=== PATIENT | male | born 1960 | race Caucasian/White ===

== ENCOUNTER 2022-02-25 23:04 | Emergency (ER) | payer MEDICAID, SELFPAY ==
--- NOTE | ~2022-02-25 | FL_ITS ---
EXAMINATION: XR FLUOROSCOPY WITH IMAGES CLINICAL INFORMATION: Stent. COMPARISON: None. TECHNIQUE: Fluoroscopy performed by Dr. Edd Slater. FLUOROSCOPY TIME: 42.2 seconds. DAP: 12.26 mGy-cm FLUOROSCOPY IMAGES: 1 FINDINGS: Single intraoperative view demonstrates proximal left ureteral stent with mild hydronephrosis. FL/FL guidance in OR IMPRESSION: Intraoperative fluoroscopy provided for urological procedure.
--- NOTE | ~2022-02-25 | CT_ITS ---
EXAMINATION: CT ABDOMEN AND PELVIS WITHOUT CONTRAST CLINICAL INFORMATION: Left lower quadrant pain COMPARISON: None TECHNIQUE: Multidetector volumetric imaging was performed from the superior aspect of the liver through the pubic symphysis. Sagittal and coronal reformatted images were obtained on the technologist's workstation. This CT examination was performed using dose optimization techniques as appropriate, variously including the following: *Automated exposure control *Adjustment of mA and/or kV according to patient size (this includes techniques or standardized protocols for targeted exams where dose is matched to indication/reason for exam; i.e. extremities or head) *Use of iterative reconstruction technique DLP: 521 mGy-cm FINDINGS: LUNG BASES: The visualized lung bases are unremarkable. LIVER, GALLBLADDER, AND BILIARY TREE: The liver is normal in size, shape, and attenuation. No focal hepatic lesion or biliary ductal dilatation is present. The gallbladder is unremarkable with no evidence of radiopaque gallstones, gallbladder wall thickening, or obvious pericholecystic inflammatory changes. PANCREAS: Unremarkable. A few scattered tiny punctate calcifications are seen. SPLEEN: Unremarkable. ADRENAL GLANDS: Unremarkable. KIDNEYS AND URETERS: On the left, there is an obstructing proximal ureteral calculus measuring 4 x 10 mm in size with moderate left-sided hydronephrosis and perinephric stranding. The stone measures 960 Hounsfield units and is 11.7 cm from the posterior axillary line. No intrarenal stones are seen. A 2.2 cm simple left renal cyst is present. This needs no further imaging or follow-up. No solid renal masses are seen. On the right, multiple nonobstructing calculi are present at the lower pole the largest measuring 7 mm in size. No hydronephrosis or solid renal masses are seen. There is a 1 cm benign Bosniak class I renal cyst present in the mid kidney. This needs no further imaging or follow-up. BLADDER: Unremarkable. GASTROINTESTINAL TRACT: The small and large bowel are unremarkable. The appendix is unremarkable. ABDOMINAL WALL: No significant hernia is appreciated. Mild diastases of the rectus muscles LYMPH NODES: No retroperitoneal lymphadenopathy. 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 PELVIC VISCERA: Prostate and seminal vesicles appear unremarkable. OSSEOUS STRUCTURES: Mild degenerative changes in the spine most marked at L5-S1. CT/CT abdomen pelvis wo con IMPRESSION: 1. 4 x 10 mm obstructing left proximal ureteral calculus with associated hydronephrosis and perirenal stranding indicative of forniceal rupture. 2. Nonobstructing right renal calculi. 3. Other incidental findings as described above. Fleischner guidelines were followed.
[2022-02-25 23:46] VITALS: BP 159/75; PULSE 77; RESP 18; TEMP 37.2; O2SAT 98; BMI 26.6
[2022-02-25 23:56] LABS: Hematocrit 47.1 % (42.0-52.0); Hemoglobin 16.1 g/dl (14.0-18.0); Mean Corpuscular HGB Conc 34.2 g/dl (31.0-36.0); Mean Corpuscular Hemoglobin 28.6 pg (27.0-33.0); Mean Corpuscular Volume 83.8 fL (80.0-98.0); Platelet Count 187 X10*3/uL (160-400); Red Blood Count 5.62 X10*6/uL (4.60-5.80); Red Cell Distribution Width 13.4 % (11.0-16.0); White Blood Count 14.6 X10*3/uL (4.8-10.8)
[2022-02-26] VITALS (11 sets, daily range): BP systolic 116–182; BP diastolic 58–87; PULSE 65–98; RESP 14–18; TEMP 36.6–37.2; O2SAT 95–98
--- NOTE | 2022-02-26 00:17 | ED_ITS ---
HPI - Abdominal Pain General Chief Complaint: Abdominal Pain Stated Complaint: lower abd pain Time Seen by Provider: 02/26/22 00:15 History of Present Illness HPI narrative: Patient is a 61-year-old male presents today with having abdominal pain been ongoing for last 2 days worse in the left flank area radiating to the left abdomen. Positive nausea no vomiting. No fever no chills. No cough no congestion of her symptoms. No history kidney stone no history of diverticulitis patient is from home. No travel history no change in bowel movement. No history of abdominal surgery in the Related Data Allergies Allergy/AdvReac Type Severity Reaction Status Date / Time No Known Allergies Allergy Verified 02/25/22 23:49 Review of Systems Review of Systems No fever no chills positive abdominal pain Yes all other systems are reviewed and are negative [facility] Past Medical History Attestation statement: The following information was validated with the patient. Social History Social History Advance Directives: No Advance Directives Information Provided: Yes Physical Exam ED Vital Signs: Vital Signs - 24 hr 02/25/22 23:46 02/26/22 01:04 02/26/22 04:34 Temperature 99.0 F 98.9 F Pulse Rate 77 73 75 Respiratory Rate 18 16 14 Blood Pressure 159/75 H 145/77 H 153/77 H Pulse Oximetry 98 97 95 02/26/22 06:08 Temperature Pulse Rate 72 Respiratory Rate 14 Blood Pressure 149/82 H Pulse Oximetry 98 BMI result Body Mass Index 26.6 Appearance: Alert. Oriented X3. No acute distress. Eyes: Pupils equal, round and reactive to light. ENT: Pharynx normal. Neck: Normal inspection. Neck supple. No lymph nodes noted. No crepitus CVS: Normal heart rate and rhythm. Pulses normal. Normal S1 and S2 Respiratory: No respiratory distress. Breath sounds normal. No Wheezing. No rales Abdomen: Soft and nontender. No rigidity. No distention. good BS x4 Skin: Skin warm and dry. Normal skin color. Normal skin turgor. Extremities: No lower extremity edema. Neurovascular intact to all extremities. No Lacerations. No Rash Neuro: Oriented X 3. No motor deficit. No sensory deficit. Moving all extermities. No slurred speech MDM - Abdominal Pain MDM Narrative Medical decision making narrative: ?Positive left-sided abdominal pain. On and off. Motrin seems to make the pain a little better. A CT scan of the abdomen was done. It show a 4 x 10 stone with forniceal rupture. Urine showed no leukocyte esterase. Small amount of white cells. 2+ bacteria. A dose of Rocephin given. Attempted to contact Urology. No fever no chills in the emergency department. 4 x 10 mm obstructing left proximal ureteral calculus with associated hydronephrosis and perirenal stranding indicative of forniceal rupture. Patient's case discussed with Urology. Will add him on to the OR schedule and placed a stent for him. He is in stable condition. Differential Diagnosis Differential diagnosis: Likely abdominal pain Medical Records Attestation: I reviewed the patient's medical records. Lab Data Attestation: I reviewed the patient's lab results. Result diagrams: 02/25/22 23:42 02/25/22 23:42 Labs: Lab Results 02/25/22 02/25/22 02/26/22 Range/Units 23:42 23:42 00:51 WBC 14.6 H (4.8-10.8) X10*3/uL RBC 5.62 (4.60-5.80) X10*6/uL Hgb 16.1 (14.0-18.0) g/dl Hct 47.1 (42.0-52.0) % MCV 83.8 (80.0-98.0) fL MCH 28.6 (27.0-33.0) pg MCHC 34.2 (31.0-36.0) g/dl RDW 13.4 (11.0-16.0) % Plt Count 187 (160-400) X10*3/uL MPV 9.0 L (9.4-12.4) fL Absolute Nucleated RBC 0.000 (0.0-0.012) X10*3/uL Nucleated RBC % (auto) 0.0 (0.0-0.2) /100WBC Sodium 141 (135-145) mmol/L Potassium 3.8 (3.3-5.1) mmol/L Chloride 107 (96-108) mmol/L Carbon Dioxide 19 L (22-29) mmol/L Anion Gap 19 (12-20) BUN 26 H (9-16) mg/dL Creatinine 1.43 H (0.5-1.4) mg/dL Estim Creat Clear Calc 55.6 Estimated GFR 51 Random Glucose 118 H (60-115) mg/dL Calcium 10.2 (8.4-10.2) mg/dL Total Bilirubin 0.7 (0.0-1.0) mg/dL Direct Bilirubin 0.3 (0.0-0.5) mg/dL AST 26 (5-37) U/L ALT 29 (0-40) U/L Alkaline Phosphatase 44 (39-117) U/L Total Protein 8.3 H (6.5-8.0) g/dL Albumin 4.8 (3.5-5.0) g/dL Lipase 16 (8-78) U/L Urine Color YELLOW Urine Appearance CLEAR Urine pH 6.0 (5.0-8.0) Ur Specific [place] >= 1.030 H (1.005-1.025) Urine Protein TRACE (NEG-TRACE) MG/DL Urine Glucose (UA) NEG (NEG) MG/DL Urine Ketones 15 (NEG) MG/DL Urine Blood 1+ H (NEG) Urine Nitrite NEG (NEG) Ur Leukocyte Esterase NEG (NEG) Urine RBC 15-29 H (0) /HPF Urine WBC 10-14 H (0-4) /HPF Ur Squamous Epith Cells 1+ /LPF Calcium Oxalate Crystal 2+ /LPF Urine Bacteria 2+ /LPF Urine Mucus 2+ /LPF Discharge Plan Discharge Clinical Impression: Renal colic Patient Disposition: Admitted As Inpatient
[2022-02-26 00:22] LABS: Alanine Aminotransferase 29 U/L (0-40); Albumin Level 4.8 g/dL (3.5-5.0); Alkaline Phosphatase 44 U/L (39-117); Anion Gap 19 (12-20); Aspartate Amino Transferase 26 U/L (5-37); Bilirubin Direct 0.3 mg/dL (0.0-0.5); Bilirubin Total 0.7 mg/dL (0.0-1.0); Blood Urea Nitrogen 26 mg/dL (9-16); Calcium 10.2 mg/dL (8.4-10.2); Carbon Dioxide 19 mmol/L (22-29); Chloride 107 mmol/L (96-108); Creatinine Clr Calc Pharmacy 55.6; Estimated Glomerular Filt Rate 51; Glucose Random 118 mg/dL (60-115); Lipase 16 U/L (8-78); Potassium 3.8 mmol/L (3.3-5.1); Sodium 141 mmol/L (135-145); Total Protein 8.3 g/dL (6.5-8.0)
[2022-02-26] MEDS: 0.9 % Sodium Chloride 1,000 ML 999 ML IV (01:03)
[2022-02-26] MEDS: Ketorolac Tromethamine 30 MG/ML VIAL IVPUSH (01:03)
[2022-02-26 01:14] LABS: Appearance Urine CLEAR; Color Urine YELLOW; Glucose Urine UA NEG (NEG); Leukocyte Esterase Urine NEG (NEG); Nitrite Urine NEG (NEG); Specific Gravity - Urine >= 1.030 (1.005-1.025); UACC Culture Trigger NO; Urine Blood 1+ (NEG); Urine Ketones 15 MG/DL (NEG); Urine Protein TRACE MG/DL (NEG-TRACE)
[2022-02-26 01:20] LABS: Bacteria Urine 2+ /LPF; Calcium Oxalate Crystals Urine 2+ /LPF; Squamous Epithelial Cell Urine 1+ /LPF
[2022-02-26 01:21] LABS: Mucus Urine 2+ /LPF
[2022-02-26] MEDS: cefTRIAXone sodium 1 GM in 0.9 % Sodium Chloride 50 ML IV (04:36)
[2022-02-26 07:42] LABS: COVID-19 Test Negative (Negative); IDNOW Serial# 16C4AD1C
--- NOTE | 2022-02-26 08:24 | PHA.MEDREC ---
Pharmacy Consult ? Medication Reconciliation Pharmacy has completed the medication reconciliation. Patient reports no medications. Susanne Young, HiramD
--- NOTE | 2022-02-26 13:57 | HO.ANESPROP2 ---
[facility] Active Problems Active Problems: All Active Problems (Updated 02/26/22 @ 06:10 by Nupur Gallagher MD) Renal colic (Acute) Family History Family history of problems with anesthesia: No Surgical History History of Problems with Anesthesia: No Social History Social History Patient Tobacco Use Status: Never used Tobacco Are you DNR?: No Advance Directives: No Advance Directives Information Provided: Yes Meds Allergies Allergy/AdvReac Type Severity Reaction Status Date / Time No Known Allergies Allergy Verified 02/25/22 23:49 Active Medications: Current Medications Pharmacy Consult (Consult Rx Perform Med Rec) 1 each MISCELLANE ONCE PRN PRN Reason: Consult order Home Medications Medication Instructions Recorded Confirmed Last Taken Type No Known Home Meds 02/26/22 02/26/22 Unknown History Exam Exam Date and Time: February 26, 2022 1357 Height,Weight and Vital Signs: Height 5 ft 9 in Weight 81.647 kg Last Vital Signs Temp 97.9 F 02/26/22 13:13 Pulse 91 02/26/22 13:13 Resp 17 02/26/22 13:13 BP 155/81 H 02/26/22 13:32 Pulse Ox 97 02/26/22 13:13 Pertinent Lab Results Pertinent Lab Results: Laboratory Tests 02/25/22 02/25/22 02/26/22 23:42 23:42 00:51 WBC 14.6 H RBC 5.62 Hgb 16.1 Hct 47.1 MCV 83.8 MCH 28.6 MCHC 34.2 RDW 13.4 Plt Count 187 MPV 9.0 L Absolute Nucleated RBC 0.000 Nucleated RBC % (auto) 0.0 Sodium 141 Potassium 3.8 Chloride 107 Carbon Dioxide 19 L Anion Gap 19 BUN 26 H Creatinine 1.43 H Estim Creat Clear Calc 55.6 Estimated GFR 51 Random Glucose 118 H Calcium 10.2 Total Bilirubin 0.7 Direct Bilirubin 0.3 AST 26 ALT 29 Alkaline Phosphatase 44 Total Protein 8.3 H Albumin 4.8 Lipase 16 Urine Color YELLOW Urine Appearance CLEAR Urine pH 6.0 Ur Specific [place] >= 1.030 H Urine Protein TRACE Urine Glucose (UA) NEG Urine Ketones 15 Urine Blood 1+ H Urine Nitrite NEG Ur Leukocyte Esterase NEG Urine RBC 15-29 H Urine WBC 10-14 H Ur Squamous Epith Cells 1+ Calcium Oxalate Crystal 2+ Urine Bacteria 2+ Urine Mucus 2+ COVID-19 ([place]) COVID-19 Clin Com 02/26/22 07:10 WBC RBC Hgb Hct MCV MCH MCHC RDW Plt Count MPV Absolute Nucleated RBC Nucleated RBC % (auto) Sodium Potassium Chloride Carbon Dioxide Anion Gap BUN Creatinine Estim Creat Clear Calc Estimated GFR Random Glucose Calcium Total Bilirubin Direct Bilirubin AST ALT Alkaline Phosphatase Total Protein Albumin Lipase Urine Color Urine Appearance Urine pH Ur Specific [place] Urine Protein Urine Glucose (UA) Urine Ketones Urine Blood Urine Nitrite Ur Leukocyte Esterase Urine RBC Urine WBC Ur Squamous Epith Cells Calcium Oxalate Crystal Urine Bacteria Urine Mucus COVID-19 ([place]) Negative COVID-19 Clin Com See Note Airway Mallampati Class: II TM Dist: >3cm Neck ROM: Full Heart: rrr Lungs: cta Assessment and Plan Assessment Anesthesia Assessment: Anesthesia Plan Discussed and Chart Reviewed Final Anesthetic Review Family History of Problems with Anesthesia: No History of Problems with Anesthesia: No NPO: Yes ASA Class: II Final Preanesthetic Review: No Changes in Pt Med Stat, Meds/Allgs Chart Reviewed and Consent Obtained/Reviewed Patient Risk: Intermediate Procedure Risk: Intermediate Anesthetic Plan Anesthetic Plan: GA Disposition: Standard PACU
--- NOTE | 2022-02-26 14:33 | PC.NURSE ---
report to gerald pt moved to pacu
--- NOTE | 2022-02-26 14:48 | MHC.SHP ---
Pre-Procedural Eval Section A Date of Service: 02/26/22 The patient is an INPATIENT: No Changes since office visit: No Cold of Flu in the past 2 weeks, No New Medical Problems, No Changes in Medication and No Patient answered all questions The History & Physical has been completed within 30 days and I have reviewed it.: Yes Section B Chief Complaint: lower abd pain Details of Present Illness: cystoscopy, left retrograde, left stent placement Allergies: Allergies Allergy/AdvReac Type Severity Reaction Status Date / Time No Known Allergies Allergy Verified 02/25/22 23:49 Review of Systems Sugical H&P ROS: Negative: Constitution, Cardiovascular, Respiratory, Neurological, Psychiatric, Hem-Onc, Allergic/Immunologic, Gastrointestinal, Genitourinary, Musculoskeletal, Integumentary, Endocrine and Eyes/Ears/Nose/Throat Exam Surgical H&P Exam: Normal: HEENT, Normal: Heart, Normal: Lungs, Normal: Extremities, Normal: Abdomen, Normal: Skin and Normal: Neurological Plan Diagnosis/Plan: Unchanged ( cystoscopy, left retrograde, left stent placement) I have reviewed the history and physical and performed a pertinent physical examination on my patient. No changes have occurred unless specified.
--- NOTE | 2022-02-26 14:49 | P.CNUR_ITS ---
History of Present Illness Consult details Consult date: 02/26/22 Narrative: Avel is a pleasant male Present to hospital with left-sided flank pain Creatinine 1.4, WBC 14.6 imaging - CT 4 x 10 mm obstructing left proximal ureteral calculus with associated hydronephrosis and perirenal stranding indicative of forniceal rupture. UA with 2+ bacteria, negative nitrite discussed imaging findings with Avel Requires retrograde with stent placement and defer ESWL to a later date Review of Systems Constitutional: Constitutional: Reports as per HPI and Reports no additional constitutional complaints Cardiovascular: Cardiovascular: Reports as per HPI and Reports no additional cardiovascular complaints Respiratory: Respiratory: Reports as per HPI and Reports no additional respiratory complaints Gastrointestinal: Gastrointestinal: Reports as per HPI and Reports no additi onal gastrointestinal complaints Genitourinary: Genitourinary: Reports as per HPI Musculoskeletal: Musculoskeletal: Reports no additional musculoskeletal complaints and Reports as per HPI Neurologic: Reports system reviewed and no additional complaints, except as documented and Reports as per HPI [facility] Social History Social History Patient Tobacco Use Status: Never used Tobacco Are you DNR?: No Advance Directives: No Advance Directives Information Provided: Yes Meds Allergies Allergy/AdvReac Type Severity Reaction Status Date / Time No Known Allergies Allergy Verified 02/25/22 23:49 Active Medications: Current Medications Pharmacy Consult (Consult Rx Perform Med Rec) 1 each MISCELLANE ONCE PRN PRN Reason: Consult order Home Medications Medication Instructions Recorded Confirmed Last Taken Type No Known Home Meds 02/26/22 02/26/22 Unknown History Physical Exam Vital Signs: Vital Signs: Last Vital Signs Temp 97.9 F 02/26/22 13:13 Pulse 91 02/26/22 13:13 Resp 17 02/26/22 13:13 BP 155/81 H 02/26/22 13:32 Pulse Ox 97 02/26/22 13:13 BMI result Body Mass Index 26.6 Const: General: cooperative, healthy appearing, comfortable and no acute distress Orientation/consciousness: patient oriented x3 HEENT: Face and sinus: Yes normal facial exam Mouth: moist mucous membranes Neck: Neck: Yes normal visual inspection, Yes full ROM and Yes trachea midline Chest: Chest palpation & inspection: normal inspection of the chest Resp: Effort & Inspection: normal respiratory effort, able to speak in complete sentences and no respiratory distress GI: Inspection: Yes normal to inspection Back/Spine/Pelvis: Cervical Spine: normal cervical lordosis Thoracic/Lumbar Spine: thoracic and lumbar spine normal to inspection Skin: General skin exam: no rashes or lesions noted Neuro: General: patient oriented x3, tone normal and moves all extremities Extrem: General: Yes normal to inspection and Yes capillary refill normal Results Labs Result diagrams: 02/25/22 23:42 02/25/22 23:42 Labs: Abnormal lab results 02/25/22 02/25/22 02/26/22 Range/Units 23:42 23:42 00:51 WBC 14.6 H (4.8-10.8) X10*3/uL MPV 9.0 L (9.4-12.4) fL Carbon Dioxide 19 L (22-29) mmol/L BUN 26 H (9-16) mg/dL Creatinine 1.43 H (0.5-1.4) mg/dL Random Glucose 118 H (60-115) mg/dL Total Protein 8.3 H (6.5-8.0) g/dL Ur Specific [place] >= 1.030 H (1.005-1.025) Urine Blood 1+ H (NEG) Urine RBC 15-29 H (0) /HPF Urine WBC 10-14 H (0-4) /HPF Short CBC 02/25/22 Range/Units 23:42 WBC 14.6 H (4.8-10.8) X10*3/uL Hgb 16.1 (14.0-18.0) g/dl Hct 47.1 (42.0-52.0) % Plt Count 187 (160-400) X10*3/uL BMP 02/25/22 23:42 Sodium 141 Potassium 3.8 Chloride 107 Carbon Dioxide 19 L BUN 26 H Creatinine 1.43 H Calcium 10.2 Liver Function 02/25/22 Range/Units 23:42 Total Bilirubin 0.7 (0.0-1.0) mg/dL Direct Bilirubin 0.3 (0.0-0.5) mg/dL AST 26 (5-37) U/L ALT 29 (0-40) U/L Alkaline Phosphatase 44 (39-117) U/L Albumin 4.8 (3.5-5.0) g/dL Urine 02/26/22 Range/Units 00:51 Urine Color YELLOW Urine Appearance CLEAR Urine pH 6.0 (5.0-8.0) Ur Specific [place] >= 1.030 H (1.005-1.025) Urine Protein TRACE (NEG-TRACE) MG/DL Urine Glucose (UA) NEG (NEG) MG/DL All other labs normal. Assessment and Plan (1) Nephrolithiasis: Status: Acute Plan Risks, benefits and alternatives to therapy were discussed. These include but are not limited to infection, bleeding, damage to local organs and tissues, need for further interventions. Anesthetic risks regarding cardiac arrhythmia, blood clots, and potential mortality were discussed. The patient understands the typical recovery time and the outpatient nature of the procedure. After consideration of these risks the patient gives full informed consent and they wish to move ahead with the procedure. cystoscopy, left retrograde, left stent placement Procedures Date of Service Date of Service: 02/26/22
--- NOTE | 2022-02-26 15:36 | P.OP_ITS ---
Operative Note Operative Note Date of Service: 02/26/22 Narrative: PreOperative Diagnosis: left proximal ureteric stone with forniceal rupture Post Operative Diagnosis: same Procedure: cystoscopy, left retrograde, left placement, removal of here from bulbar urethra Surgeon: Dr Edd Slater Anesthesia: general Indications for procedure: proximal left ureteric stone with pain Procedure: After informed consent was verified the patient was brought to the operating room and placed in a supine position. Anesthesia was administered per protocol. The patient was placed in modified dorsal lithotomy position and prepped and draped in a sterile fashion. A safety pause time-out was performed. Laterality of procedure and antibiotics were confirmed. appropriate imaging was available A 22 [place] cystoscope was introduced per urethra. No abnormality was noted. Both ureteric orifices were seen in a normal position. The left ureter was c annulated with an open ended catheter and a retrograde examination was performed. filling defects seen in proximal left ureter with hydronephrosis . A Sensor guidewire was placed under fluoroscopy and a good coil was seen within the renal pelvis. A 6 [place] by 26 cm stent was advanced over the wire and up to the level of the renal pelvis under fluoroscopic and direct visualization. The stent was seen with appropriate coil within the renal pelvis and in the bladder after deployment. Hairs removed from bulbar urethra The patient tolerated the procedure well and was transferred in stable condition to the recovery area. Pathology: Drains: 6F x26cm JJ stent
[2022-02-26] MEDS: Phenazopyridine HCL 100 MG TABLET PO (16:13)
== END 2022-02-26 12:50 | disposition home or self-care (01) ==
PROVIDERS: Urology; Emergency Provider Emergency Medicine Emergency Medical Services
PROC: (CPT 52332; principal; 2022-02-26 14:30)
DX: N13.2 Hydronephrosis with renal and ureteral calculous obstruction (principal); N28.89 Other specified disorders of kidney and ureter; N28.1 Cyst of kidney, acquired; R10.30 Lower abdominal pain, unspecified; Z20.822 Contact with and (suspected) exposure to COVID-19; R11.0 Nausea
CPT/HCPCS: 52332; 36415; 74176; 80053; 81001; 82248; 83690; 85027; 87086; 87635; 96361; 96365; 96375; 99285; C1758; C1769; C2617; J0696; J1100; J1885; J2250; J2405; J3010; Q9967

== ENCOUNTER 2022-03-28 09:03 | Day surgery (SDC) | payer MEDICAID, SELFPAY ==
--- NOTE | ~2022-03-28 | XR_ITS ---
EXAMINATION: XR ABDOMEN KUB CLINICAL INDICATION: Left lithotripsy with stent. COMPARISON: CT scan of the abdomen and pelvis dated 02/26/2022. TECHNIQUE: AP view of the abdomen. FINDINGS: Overlying stool confounds evaluation. Left ureteral stent in place. Questionable ovoid shaped radiopaque density overlying the lower pole the left kidney measuring 1.4 cm. Adjacent radiopaque densities overlying the lower pole the right kidney measuring 0.7 cm and 0.4 cm. No radiopaque densities are seen along the left ureteral stent as well as overlying the pelvis. XR/XR KUB IMPRESSION: 1. Interval placement of left ureteral stent without abnormality. 2. 1.4 cm ovoid radiopaque density overlying the lower pole the left kidney demonstrates a similar shape to the previously seen proximal ureteral calculus however this could represent overlying stool. Additionally, previously seen lower pole right intrarenal calculi correlate with previous CT findings.
[2022-03-28 09:58] VITALS: BMI 27.3
[2022-03-28 10:00] VITALS: BP 156/95; PULSE 107; RESP 18; TEMP 37; O2SAT 97
[2022-03-28] MEDS: Acetaminophen 325 MG TABLET 650 MG PO (10:05)
[2022-03-28] MEDS: levoFLOXacin 500 MG TABLET PO (10:06)
[2022-03-28] MEDS: Lactated Ringers 1,000 ML 50 ML IVCONT (10:13)
--- NOTE | 2022-03-28 11:46 | MHC.SHP ---
Pre-Procedural Eval Section A Date of Service: 03/28/22 The patient is an INPATIENT: No Changes since office visit: No Cold of Flu in the past 2 weeks, No New Medical Problems, No Changes in Medication and No Patient answered all questions The History & Physical has been completed within 30 days and I have reviewed it.: Yes Section B Chief Complaint: kidney stones Details of Present Illness: left eswl with cystoscopy and removal of ureteric stent Relevant Social History: None Present Medications: see Short Stay Collaborative assessment Medical History: Significant History History of Previous Operations: Relevant previous surgery/procedure and date(s) Allergies: Allergies Allergy/AdvReac Type Severity Reaction Status Date / Time No Known Allergies Allergy Verified 03/23/22 14:34 Review of Systems Sugical H&P ROS: Negative: Constitution, Cardiovascular, Respiratory, Neurological, Psychiatric, Hem-Onc, Allergic/Immunologic, Gastrointestinal, Genitourinary, Musculoskeletal, Integumentary, Endocrine and Eyes/Ears/Nose/Throat Exam Surgical H&P Exam: Normal: HEENT, Normal: Heart, Normal: Lungs, Normal: Extremities, Normal: Abdomen, Normal: Skin and Normal: Neurological Plan Diagnosis/Plan: Unchanged (left eswl and cysto stent removal) I have reviewed the history and physical and performed a pertinent physical examination on my patient. No changes have occurred unless specified.
--- NOTE | 2022-03-28 12:00 | HO.ANESPROP2 ---
HPI - Anesthesia Eval Consult details Narrative: 61yo male patient for removal of stent and Left ESWL PMFSH Active Problems Active Problems: All Active Problems (Updated 02/27/22 @ 00:01 by Ashlie Baker) Nephrolithiasis (Acute) Family History Family history of problems with anesthesia: No Surgical History History of Problems with Anesthesia: No (But worried about feeling of something at back of throat since surgery for stent placement. Initial soreness resolved but described feeling still persists. Will have anesthesia record reviewed and discussed with patient ) Social History Social History Patient Tobacco Use Status: Never used Tobacco Use of substances other than those prescribed or required for medical reasons: No Are you DNR?: No Advance Directives: No Advance Directives Information Provided: Yes Meds Allergies Allergy/AdvReac Type Severity Reaction Status Date / Time No Known Allergies Allergy Verified 03/23/22 14:34 Exam Exam Date and Time: March 28, 2022 1200 Height,Weight and Vital Signs: Height 5 ft 9 in Weight 83.915 kg Last Vital Signs Temp 98.6 F 03/28/22 10:00 Pulse 107 H 03/28/22 10:00 Resp 18 03/28/22 10:00 BP 156/95 H 03/28/22 10:00 Pulse Ox 97 03/28/22 10:00 O2 Del Method 03/28/22 10:00 Airway Mallampati Class: II TM Dist: >3cm Neck ROM: Full Loose/Missing/Broken Teeth: No (Patient denies) Heart: RRR Lungs: CTAB Assessment and Plan Assessment Anesthesia Assessment: Anesthesia Plan Discussed and Chart Reviewed Final Anesthetic Review Family History of Problems with Anesthesia: No History of Problems with Anesthesia: No (But worried about feeling of something at back of throat since surgery for stent placement. Initial soreness resolved but described feeling still persists. Will have anesthesia record reviewed and discussed with patient ) NPO: Yes ASA Class: I Final Preanesthetic Review: No Changes in Pt Med Stat, Meds/Allgs Chart Reviewed, Consent Obtained/Reviewed and Anes Risks/Benef Reviewed Patient Risk: Low Procedure Risk: Low Assessment/Block/Sedation in SS: Assess/Block/Sedation-SS Anesthetic Plan Anesthetic Plan: MAC: Disposition: Standard PACU
--- NOTE | 2022-03-28 13:05 | W.PM.OPN ---
Operative Note Operative Note Date of Service: 03/28/22 Narrative: PreOperative Diagnosis: Left Renal stones with indwelling stent Post Operative Diagnosis: Left Renal stones Procedure: Left ESWL with cystoscopy and stent removed Surgeon: Dr Edd Slater Anesthesia: mac/sedation Indications for procedure: The patient understands ESWL may be a staged procedure and subsequent intervention may be required based on imaging after ESWL. They also understand there is a risk of bleeding to the kidney, infection, damage to adjacent organs, and stone migration following the procedure. - Imaging 12 mm left lower pole stent placed previously Procedure: After informed consent was verified the patient was brought to the operating room and placed in a supine position. Anesthesia was performed per protocol. Safety pause time-out was performed. Imaging was displayed in the room and laterality confirmed. The penis was prepped and cystoscope placed. 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 ESWL was performed. The 1st 500 shocks were performed at 60 hertz. These were performed with increasing power. Once maximum power was reached the rate was increased to 180 hertz. A total of 2500 shocks were given. Targeted imaging with ultrasound/fluoroscopy showed stone smudging suggestive of disintegration. The patient tolerated the procedure well and was transferred to the recovery area upon completion. Post procedure imaging will be organized. There was no evidence for flank discoloration.
[2022-03-28 13:12] VITALS: BP 119/72; PULSE 67; RESP 20; TEMP 36.8; O2SAT 95
[2022-03-28 13:27] VITALS: BP 121/78; PULSE 81; RESP 20; O2SAT 96
[2022-03-28 13:42] VITALS: BP 132/80; PULSE 79; RESP 16; O2SAT 96
[2022-03-28 13:56] VITALS: BP 142/82; PULSE 63; RESP 16; TEMP 36.4; O2SAT 97
[2022-03-28] MEDS: traMADoL HCL 50 MG TABLET PO (13:58)
[2022-03-28] MEDS: Ketorolac Tromethamine 15 MG/ML VIAL IVPUSH (13:58)
[2022-03-28 14:18] VITALS: BP 137/81; PULSE 72; RESP 18; TEMP 36.9; O2SAT 97
== END 2022-03-28 16:16 | disposition home or self-care (01) ==
PROVIDERS: Visit Provider Urology
PROC: (CPT 50590; principal; 2022-03-28 11:40)
DX: N20.0 Calculus of kidney (principal); N35.819 Other urethral stricture, male, unspecified site; N36.5 Urethral false passage
CPT/HCPCS: 50590; 52310 ×2; 74018; J1885; J1940; J2250; J3010